=== PATIENT | female | born 1945 | race Caucasian/White ===

== ENCOUNTER 2020-09-20 20:20 | Emergency (ER) | payer MEDICARE, OTHER ==
[~2020-09-20] VITALS: Ht 157.5 cm; Wt 66.7 kg
--- NOTE | 2020-09-20 21:05 | ER.PDOC ---
General Chief Complaint: Requesting Medical Care Stated Complaint: bilateral flank pain Time seen by MD: 20:50 Source: patient Exam Limitations: no limitations History of Present Illness Initial Comments This is a 75-year-old female who complains of a 2 to 3-day history of bilateral flank and low back pain. 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 There is some exacerbation with movement. She notes that she has a history of chronic kidney disease. There is been no fever or chills and no nausea, vomiting or diarrhea and no urinary tract symptoms. There is been no no lower extremity neurological symptoms. Allergies: Coded Allergies: No Known Allergies (Unverified , 08/09/17) Vital Signs First Vital Signs Date Time Temp Pulse Resp B/P (MAP) Pulse Ox O2 Delivery O2 Flow Rate FiO2 09/20/20 21:13 99.4 96 18 154/67 (96) 97 Room Air Last Vital Signs Date Time Temp Pulse Resp B/P (MAP) Pulse Ox O2 Delivery O2 Flow Rate FiO2 09/20/20 21:13 99.4 96 20 09/20/20 21:13 97 09/20/20 21:13 154/67 (96) Room Air Past Medical History Medical History: hypertension, renal disease Surgical History: no surgical history Social History Smoking: non-smoker Alcohol Use: rarely Drug Use: none Constitutional: denies chills, denies fever EENTM: denies eye pain, denies double vision Respiratory: denies cough, denies shortness of breath Cardiovascular: denies chest pain, denies palpitations Gastrointestinal: denies abdominal pain, denies vomiting Genitourinary: denies dysuria, denies hematuria Musculoskeletal: denies back pain, denies joint pain Skin: denies lesions, denies rash Psychiatric/Neurological: denies anxiety, denies depressed Endocrine: denies increased thrist, denies increased urine Hematologic/Lymphatic: denies easy bleeding, denies easy bruising Physical Exam General Appearance: No Apparent Distress HEENT: PERRL/EOMI, Normal ENT Inspection, Pharynx Normal Neck: Supple, Normal Inspection Respiratory: lungs clear, normal breath sounds, no respiratory distress, no accessory muscle use Cardiovascular: Normal Peripheral Pulses, Regular Rate, Rhythm, No Edema, No JVD, No Murmur Gastrointestinal: Normal Bowel Sounds, Non Tender Back: Normal Inspection, No CVA Tenderness, No Vertebral Tenderness, Other (Mild discomfort with full flexion and extension) Extremities: Normal Range of Motion, Non-Tender, Normal Inspection 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, No Motor/Sensory Deficits, Alert, Normal Mood/Affect, Oriented x 3 Skin: Normal Color, Warm/Dry Lymphatic: No Adenopathy Results/Orders Results/Orders Orders - RICHARD ALBARRAN MD Cbc With Auto Diff (09/20/20 20:57) Comprehensive Metabolic Panel (09/20/20 20:57) Urinalysis (09/20/20 20:57) Ct Abd/Pelvis Wo Iv Contrast (09/20/20 20:57) Xr Chest 2v (09/20/20 22:40) Vital Signs Date Time Temp Pulse Resp B/P (MAP) Pulse Ox O2 Delivery O2 Flow Rate FiO2 09/20/20 21:13 99.4 96 20 09/20/20 21:13 99.4 96 20 97 09/20/20 21:13 99.4 96 18 154/67 (96) 97 Room Air Laboratory Tests Test 09/20/20 21:11 09/20/20 21:20 09/20/20 21:21 09/20/20 21:38 Urine Collection Type RANDOM Urine Color YELLOW Urine Appearance CLEAR Urine Bilirubin NEGATIVE (NEGATIVE) Urine Ketones NEGATIVE (NEGATIVE) Urine Specific Murray 1.025 (1.005-1.030) Urine pH 5.0 (4.5-8.0) Urine Protein NEGATIVE (NEGATIVE) Urine Urobilinogen 0.2 E.U./dL (0.2) Urine Nitrate NEGATIVE (NEGATIVE) Urine Leukocyte Esterase NEGATIVE (NEGATIVE) Urine Glucose (Auto)(UA) NEGATIVE (NEGATIVE) Urine Blood NEGATIVE (NEGATIVE) White Blood Count 11.6 10^3/uL (4.5-11.0) H Red Blood Count 4.50 10^6/uL (4.00-5.20) Hemoglobin 16.3 g/dL (12.0-15.0) H Hematocrit 48.1 % (36.0-46.0) H Mean Corpuscular Volume 106.9 fL (78-100) H Mean Corpuscular Hemoglobin 36.2 pg (26-34) H Mean Corpuscular Hemoglobin Concent 33.9 g/dL (33-36.5) Red Cell Distribution Width 13.0 % (11.5-14.5) Platelet Count 225 10^3/uL (150-400) Mean Platelet Volume 10.0 fL (7.8-11.0) Neutrophils (%) (Auto) 85.8 % (41.0-85.0) H Lymphocytes (%) (Auto) 6.5 % (24.0-44.0) *L Monocytes (%) (Auto) 6.6 % (5.0-12.0) Neutrophils # (Auto) 9.9 10^3/uL (1.8-7.7) H Lymphocytes # (Auto) 0.75 10^3/uL1 (1.0-4.8) L Monocytes # (Auto) 0.8 10^3/uL (0.3-0.8) Absolute Immature Granulocyte (auto 0.07 10^3 u/L (0-2) Absolute Eosinophils (auto) 0.1 10^3/uL (0.0-0.2) Immature Granulocytes % 0.60 % (0.00-0.50) H Eosinophils % 0.6 % (0.0-5.0) Basophils % 0.5 % (0.0-0.2) H Basophils # 0.1 10^3/uL (0.0-0.1) Sodium Level 134 mmol/L (132-145) Potassium Level 4.5 mmol/L (3.6-5.2) Chloride Level 97.0 mmol/L (96-109) Carbon Dioxide Level 20.5 mmol/L (20.0-32) Anion Gap 21.0 Blood Urea Nitrogen 43 mg/dL (7-18) H Creatinine 2.61 mg/dL (0.59-1.40) *H Estimated GFR () 21.7 (>/=60) Est GFR (CKD-EPI)(Non-Afr Beninese) 17.9 (>/=60) BUN/Creatinine Ratio 16.0 Glucose Level 125 mg/dL (70-110) H Calcium Level 9.2 mg/dL (8.4-10.5) Total Bilirubin 0.6 mg/dL (0.2-1.0) Aspartate Amino Transferase (AST) 22 U/L (0-35) Alanine Aminotransferase (ALT) 27 U/L (12-78) Alkaline Phosphatase 86 U/L (50-136) Total Protein 8.4 g/dL (6.4-8.2) H Albumin 3.5 g/dL (3.4-5.0) Globulin 4.9 Albumin/Globulin Ratio 0.714 Segmented Neutrophils 89 % (31-76) H Lymphocytes 6 % (25-36) L Monocytes 5 % (3-9) Platelet Estimate ADEQUATE Platelet Morphology NORMAL Progress Progress No evidence of ureterolithiasis or pyelonephritis.Serum creatinine mildly elevated compared to last value.However patient found to have a small right pleural effusion, possible infiltrate at the right lung base and also mild leukocytosis. Therefore this may be related to community-acquired pneumonia and I will treat her for that. The back pain may be unrelated and seems to be musculoskeletal. I recommended that she follow-up with her primary care phys ician and have the chest x-ray repeated in a few weeks. If the pleural effusion is still present then she may need pulmonary evaluation and possible thoracentesis for diagnosis. ER DEPART Departure Time of Disposition: 23:12 Disposition: 01 HOME / SELF CARE / HOMELESS Impression: Primary Impression: Low back pain Additional Impressions: Pleural effusion, right Pneumonia Condition: Improved Patient Instructions: Back Pain, Adult, Pleural Effusion, Pneumonia, Adult Referrals: CHARLES KNUTSON MD (PCP) PRIMARY CARE PROVIDER Duration or Time Spent with Pa: 10 Problem Qualifiers RICHARD ALBARRAN MD Sep 20, 2020 21:05
[2020-09-20 21:13] VITALS: BP 154/67
--- NOTE | 2020-09-20 21:29 | DIREP ---
PROCEDURE:CT ABDOMEN/PELVIS W/O CONTRAST COMPARISON:None. INDICATIONS:bilateral flank pain TECHNIQUE:Axial images were created through the abdomen and pelvis without intravenous contrast material. No oral contrast was administered. Sagittal and coronal reconstructions were performed from source images. FINDINGS: LUNG BASES:Small right pleural fluid. Passive atelectasis or infiltrate in the right lower lobe. Epicardial fat pad. Coronary calcifications. LIVER:No hepatic lesion on noncontrast exam. BILIARY:Gallbladder is unremarkable, no intra or extrahepatic biliary dilation. PANCREAS:Unremarkable. SPLEEN:Normal, nonenlarged. KIDNEYS:No renal mass on noncontrast exam. Minimal bilateral perinephric stranding, no focal or asymmetric perinephric stranding is present. No hydronephrosis or collecting system stone identified. ADRENALS:Normal. AORTA/VASCULAR:Calcified atherosclerosis. No aneurysm. RETROPERITONEUM:No adenopathy or mass. BOWEL/MESENTERY:No evidence of obstruction. Appendix normal. Colonic diverticulosis, predominantly involving the sigmoid colon. No imaging evidence of diverticulitis. ABDOMINAL WALL:Normal. No mass or hernia. URINARY BLADDER: Inherently limited evaluation of the wall; unremarkable for level of distension. PELVIS:Uterus present, no adnexal mass. No adenopathy. BONES:Intervertebral disc height loss, posterior disc osteophyte complex L5-S1. No bony lesion or fracture. OTHER:No free air or fluid. CONCLUSION: 1. Small right pleural fluid. 2. Passive atelectasis or infiltrate in the right lower lobe. 3. Minimal bilateral perinephric spur trending is nonspecific. There is no focal or asymmetric perinephric stranding to further suggest pyelonephritis on this exam. No ureteral stone or hydronephrosis. 4. Sigmoid diverticulosis without diverticulitis. Dictated by: Pepper Celeste MD on 09/20/2020 at 09:20 PM
[2020-09-20 21:35] LABS: BASOPHIL # 0.1 10^3/uL (0.0-0.1); BASOPHIL % 0.5 % (0.0-0.2); EOSINOPHIL # 0.1 10^3/uL (0.0-0.2); EOSINOPHIL % 0.6 % (0.0-5.0); LYMPHOCYTES # 0.75 10^3/uL1 (1.0-4.8); LYMPHOCYTES % 6.5 % (24.0-44.0); MEAN CORP HGB 36.2 pg (26-34); MONOCYTES # 0.8 10^3/uL (0.3-0.8); MONOCYTES % 6.6 % (5.0-12.0); NEUTROPHIL # 9.9 10^3/uL (1.8-7.7); NEUTROPHILS % 85.8 % (41.0-85.0); PLATELET COUNT 225 10^3/uL (150-400)
[2020-09-20 21:38] LABS: BILIRUBIN,URINE NEGATIVE (NEGATIVE); UA COLOR YELLOW
[2020-09-20 21:39] LABS: UROBILINOGEN,URINE 0.2 E.U./dL (0.2)
[2020-09-20 21:45] LABS: CALCIUM 9.2 mg/dL (8.4-10.5); CARBON DIOXIDE 20.5 mmol/L (20.0-32)
[2020-09-20 22:15] VITALS: BP 101/57
[2020-09-20 22:41] LABS: LYMPHOCYTE 6 % (25-36); MONOCYTE 5 % (3-9); SEGMENTED NEUTROPHILS 89 % (31-76)
--- NOTE | 2020-09-20 23:03 | DIREP ---
PROCEDURE:CHEST 2 VIEWS COMPARISON:[facility], CT, CT ABD/PELVIS W/O, 09/20/2020, 09:07 PM. INDICATIONS:pleural effusion, atelectasis seen on abdominal CT FINDINGS: LUNGS/PLEURA:Small right pleural fluid. Parenchymal opacity in the right lung base may represent passive atelectasis or infiltrate. No pneumothorax. VASCULATURE:Unremarkable pulmonary vasculature. CARDIAC:No cardiac silhouette abnormality or cardiomegaly. MEDIASTINUM:No visible mass or adenopathy. BONES:No fracture or visible bony lesion. OTHER:Negative. CONCLUSION: 1. Small right pleural fluid with adjacent parenchymal opacity in the right lung base. The pulmonary opacity may represent passive atelectasis or infiltrate. Dictated by: Pepper Celeste MD on 09/20/2020 at 11:00 PM
[2020-09-20 23:30] VITALS: BP 121/54
--- NOTE | 2020-09-20 23:35 | NUR ---
IV DC'D TIP INTACT, NO BLEEDING
== END 2020-09-20 23:40 | disposition home or self-care (01) ==
LOC: ER 20:20
DX: I12.9 Hypertensive chronic kidney disease with stage 1 through stage 4 chronic kidney disease, or unspecified chronic kidney disease (principal); J18.9 Pneumonia, unspecified organism; J90 Pleural effusion, not elsewhere classified; N18.9 Chronic kidney disease, unspecified
CPT/HCPCS: 36415; 71046; 74176; 80053; 81003; 85025; 99285

== ENCOUNTER → 2020-11-02 | Outpatient (CLI) | payer MEDICARE, OTHER | END | disposition home or self-care (01) | LOC: NPLAB 16:29 | PROVIDERS: ATTEND Nurse Practitioner Adult Health | DX: R30.0 Dysuria (principal) | CPT/HCPCS: 87077; 87086; 87186 ==

== ENCOUNTER → 2020-11-02 | Outpatient (CLI) | payer MEDICARE, OTHER ==
--- NOTE | 2020-11-02 20:53 | DIREP ---
PROCEDURE:CHEST 2 VIEWS COMPARISON:[facility], CR, XRAY CHEST 2 VWS, 09/20/2020, 10:37 PM. INDICATIONS:J15.9 BACTERIAL PNEUMONIA FINDINGS: LUNGS/PLEURA:Small right pleural fluid. Parenchymal opacity in the right lung base may represent passive atelectasis or infiltrate. No pneumothorax. VASCULATURE:Unremarkable pulmonary vasculature. CARDIAC:No cardiac silhouette abnormality or cardiomegaly. MEDIASTINUM:No visible mass or adenopathy. BONES:No fracture or visible bony lesion. OTHER:Negative. CONCLUSION:No significant change from the prior radiograph. Stable findings as above. Dictated by: Darryl Olson MD on 11/02/2020 at 08:51 PM
== END | disposition home or self-care (01) ==
LOC: RAD 16:00
PROVIDERS: ATTEND Nurse Practitioner Adult Health
DX: J15.9 Unspecified bacterial pneumonia (principal)
CPT/HCPCS: 71046

== ENCOUNTER → 2020-12-28 | Outpatient (CLI) | payer MEDICARE, OTHER ==
[2020-12-28 10:43] LABS: PLATELET COUNT 116 10^3/uL (150-400); RED CELL DISTRIBUTION WIDTH 17.7 % (11.5-14.5)
[2020-12-28 10:57] LABS: BILIRUBIN,URINE NEGATIVE (NEGATIVE); UROBILINOGEN,URINE 0.2 E.U./dL (0.2)
[2020-12-28 11:01] LABS: CALCIUM 8.4 mg/dL (8.4-10.5); CARBON DIOXIDE 26.7 mmol/L (20.0-32)
== END | disposition home or self-care (01) ==
LOC: LAB 10:25
PROVIDERS: ATTEND Internal Medicine Nephrology
DX: N18.4 Chronic kidney disease, stage 4 (severe) (principal); R82.90 Unspecified abnormal findings in urine
CPT/HCPCS: 36415; 80069; 81001; 82570; 83735; 83970; 84156; 85027; 87077; 87086; 87186

== ENCOUNTER → 2021-02-22 | Outpatient (CLI) | payer MEDICARE, OTHER ==
--- NOTE | 2021-02-22 15:35 | DIREP ---
PROCEDURE:CHEST 2 VIEWS COMPARISON:[facility], CR, XRAY CHEST 2 VWS, 11/02/2020, 04:05 PM. INDICATIONS:COUGH FINDINGS: LUNGS/PLEURA:Patchy infiltrate in the left lung base appears new. Infiltrate in the right lung base with small effusion is either chronic or recurrent. VASCULATURE:Normal. Unremarkable pulmonary vasculature. CARDIAC:Question borderline cardiomegaly. MEDIASTINUM:Normal. No visible mass or adenopathy. BONES:Mild degenerative disc disease and spondylosis without visible acute abnormalities. OTHER:Negative. CONCLUSION: Bibasilar infiltrates with small effusions. Infiltrate either recurrent or chronic in the right lung base and new in the left lung base. Dictated by: Zenon Salas M.D. on 02/22/2021 at 03:32 PM
== END | disposition home or self-care (01) ==
LOC: RAD 14:19
PROVIDERS: ATTEND Internal Medicine
DX: R91.8 Other nonspecific abnormal finding of lung field (principal); J90 Pleural effusion, not elsewhere classified; R05.9 Cough, unspecified
CPT/HCPCS: 71046

== ENCOUNTER → 2021-04-26 | Outpatient (CLI) | payer MEDICARE, OTHER | END | disposition home or self-care (01) | LOC: NPLAB 18:35 | PROVIDERS: ATTEND Internal Medicine | DX: R50.9 Fever, unspecified (principal); R10.9 Unspecified abdominal pain; Z20.822 Contact with and (suspected) exposure to COVID-19 | CPT/HCPCS: 87426 ==

== ENCOUNTER → 2021-07-01 | Outpatient (CLI) | payer MEDICARE, OTHER ==
[2021-07-01 11:15] LABS: MEAN CORP HGB 35.2 pg (26-34); RED CELL DISTRIBUTION WIDTH 14.7 % (11.5-14.5)
[2021-07-01 11:46] LABS: CARBON DIOXIDE 26.2 mmol/L (20.0-32)
[2021-07-01 11:50] LABS: BILIRUBIN,URINE NEGATIVE (NEGATIVE); UROBILINOGEN,URINE 0.2 E.U./dL (0.2)
== END | disposition home or self-care (01) ==
LOC: LAB 10:57
PROVIDERS: ATTEND Internal Medicine Nephrology
DX: N18.4 Chronic kidney disease, stage 4 (severe) (principal); R82.90 Unspecified abnormal findings in urine
CPT/HCPCS: 36415; 80069; 81001; 83735; 83970; 85027; 87077; 87086; 87186

== ENCOUNTER → 2022-01-21 | Outpatient (CLI) | payer MEDICARE, OTHER ==
[2022-01-21 13:32] LABS: MEAN CORP HGB 32.8 pg (26-34); RED CELL DISTRIBUTION WIDTH 12.6 % (11.5-14.5)
[2022-01-21 13:36] LABS: BILIRUBIN,URINE NEGATIVE (NEGATIVE); UROBILINOGEN,URINE 0.2 E.U./dL (0.2)
[2022-01-21 13:49] LABS: CARBON DIOXIDE 25.7 mmol/L (20.0-32)
== END | disposition home or self-care (01) ==
LOC: LAB 13:13
PROVIDERS: ATTEND Internal Medicine Nephrology
DX: N18.32 Chronic kidney disease, stage 3b (principal); N39.0 Urinary tract infection, site not specified; R82.90 Unspecified abnormal findings in urine
CPT/HCPCS: 36415; 80069; 81001; 83970; 84156; 85027; 87086